=== PATIENT | female | born 1945 | race Caucasian/White ===

== ENCOUNTER 2017-10-25 10:01 | Emergency (ER) | payer MEDICARE ==
[2017-10-25] MEDS ORDERED: PANTOPRAZOLE 40 MG/10 ML VIAL IVP STA (11:05)
[2017-10-25] MEDS ORDERED: SODIUM CHLORIDE 0.9% 1,000 ML IV STA ×2 (11:05)
[2017-10-25] MEDS ORDERED: ONDANSETRON 4 MG/2 ML VIAL IVP STA (11:05)
[2017-10-25 11:55] LABS: Basophils % (A) 0 %; Eosinophils % (A) 0 %; HCT 44.4 % (34.0-46.0); HGB 14.7 gm/dL (11.4-16.0); Lymphocytes # (A) 1.2 k/uL (1.0-4.8); Lymphocytes % (A) 26 %; MCH 29.3 pg (25.0-35.0); MCHC 33.1 g/dL (31.0-37.0); MCV 88.4 fL (80.0-100.0); Mean Platelet Volume 7.4; Monocytes # (A) 0.4 k/uL (0-1.0); Monocytes % (A) 10 %; Neutrophils # (A) 2.8 k/uL (1.3-7.7); Neutrophils % (A) 63 %; Platelet Count 253 k/uL (150-450); RBC 5.02 m/uL (3.80-5.40); RDW 13.6 % (11.5-15.5); WBC 4.4 k/uL (3.8-10.6)
[2017-10-25 12:08] LABS: ALT 25 U/L (9-52); AST 26 U/L (14-36); Alkaline Phosphatase 80 U/L (38-126); Anion Gap 11 mmol/L; Blood Urea Nitrogen 11 mg/dL (7-17); Calcium 9.5 mg/dL (8.4-10.2); Carbon Dioxide 29 mmol/L (22-30); Chloride 100 mmol/L (98-107); Glucose 110 mg/dL (74-99); INR 1.1 (<1.2); Partial Thromboplastin Time 22.2 sec (22.0-30.0); Phosphorus 3.3 mg/dL (2.5-4.5); Prothrombin Time 10.6 sec (9.0-12.0); Sodium 140 mmol/L (137-145); Total Bilirubin 0.5 mg/dL (0.2-1.3); Total Protein 7.3 g/dL (6.3-8.2)
--- NOTE | 2017-10-25 12:08 | ED ---
General Adult HPI - General Chief complaint: Nausea/Vomiting/Diarrhea Stated complaint: Flu Time Seen by Provider: 10/25/17 10:36 Source: patient, RN notes reviewed, old records reviewed Mode of arrival: ambulatory Limitations: no limitations - History of Present Illness Initial comments: This is a 71-year-old female to the ER for evaluation of persistent nausea vomiting, not feeling well. No specific pain. Symptoms worse after eating. Patient has been on multiple different antibiotics recently for upper respiratory infection, bronchitis. Patient has had occasional on and off diarrhea. No fevers no travel history no sick contacts no family member with similar significant symptoms. Patient has seen both her family doctor and manufacturing intern in the last 2 weeks for evaluation, has completed all outpatient treatment, main complaint is side effects related to treatment course. - Related Data Home Medications Medication Instructions Recorded Confirmed Azithromycin [Zithromax Z-pack] See Taper PO DAILY 10/25/17 10/25/17 Fluticasone Propionate [Flovent 2 puff INHALATION RT-DAILY 10/25/17 10/25/17 Hfa 110mcg] Ranitidine HCl 150 mg PO DAILY PRN 10/25/17 10/25/17 Theophylline Anhydrous [Uniphyl ER] 600 mg PO HS 10/25/17 10/25/17 methylPREDNISolone [Medrol Dose See Taper PO DIRECTED 10/25/17 10/25/17 Pack] Previous Rx's Medication Instructions Recorded Ondansetron Odt [Zofran ODT] 4 mg PO Q8HR PRN #30 tab 10/25/17 Allergies Allergy/AdvReac Type Severity Reaction Status Date / Time No Known Allergies Allergy Verified 10/25/17 10:46 Review of Systems ROS Statement: Those systems with pertinent positive or pertinent negative responses have been documented in the HPI. ROS Other: All systems not noted in ROS Statement are negative. Past Medical History Past Medical History: No Reported History History of Any Multi-Drug Resistant Organisms: None Reported Past Surgical History: No Surgical Hx Reported Past Psychological History: No Psychological Hx Reported Smoking Status: Former smoker Past Alcohol Use History: None Reported General Exam Limitations: no limitations General appearance: alert, in no apparent distress Head exam: Present: atraumatic, normocephalic, normal inspection Eye exam: Present: normal appearance, PERRL, EOMI. Absent: scleral icterus, conjunctival injection, periorbital swelling ENT exam: Present: normal exam, mucous membranes dry Neck exam: Present: normal inspection. Absent: tenderness, meningismus, lymphadenopathy Respiratory exam: Present: normal lung sounds bilaterally. Absent: respiratory distress, wheezes, rales, rhonchi, stridor Cardiovascular Exam: Present: regular rate, normal rhythm, normal heart sounds. Absent: systolic murmur, diastolic murmur, rubs, gallop, clicks GI/Abdominal exam: Present: soft, normal bowel sounds. Absent: distended, tenderness, guarding, rebound, rigid Extremities exam: Present: normal inspection, full ROM, normal capillary refill. Absent: tenderness, pedal edema, joint swelling, calf tenderness Back exam: Present: normal inspection Neurological exam: Present: alert, oriented X3, CN II-XII intact Psychiatric exam: Present: normal affect, normal mood Skin exam: Present: warm, dry, intact, normal color. Absent: rash Course Vital Signs 10/25/17 10:18 Temperature 96.7 F L Pulse Rate 105 H Respiratory 18 Rate Blood Pressure 117/72 O2 Sat by Pulse 97 Oximetry - Reevaluation(s) Reevaluation #1: 10/25/17 12:16 Patient given IV hydration here in the ER, feeling better, potassium is replaced Reevaluation #2: 10/25/17 12:16 Patient remains improved after breathing treatment EKG Findings - EKG Comments: EKG Findings:: EKG shows sinus rhythm rate of 95, WV 128, QRS 64, QTC 424 Medical Decision Making - Medical Decision Making 71 female the ER with nausea vomiting, visual diarrhea likely related to medication side effects. Patient will be given Zofran, patient is positive for informs a, outside of treatment window for Tamiflu, no fever encouraged increased fluid intake and discharged home - Lab Data Result diagrams: 10/25/17 11:40 10/25/17 11:40 Lab Results 10/25/17 10/25/17 10/25/17 Range/Units 11:40 11:40 11:40 WBC 4.4 (3.8-10.6) k/uL RBC 5.02 (3.80-5.40) m/uL Hgb 14.7 (11.4-16.0) gm/dL Hct 44.4 (34.0-46.0) % MCV 88.4 (80.0-100.0) fL MCH 29.3 (25.0-35.0) pg MCHC 33.1 (31.0-37.0) g/dL RDW 13.6 (11.5-15.5) % Plt Count 253 (150-450) k/uL Neutrophils % 63 % Lymphocytes % 26 % Monocytes % 10 % Eosinophils % 0 % Basophils % 0 % Neutrophils # 2.8 (1.3-7.7) k/uL Lymphocytes # 1.2 (1.0-4.8) k/uL Monocytes # 0.4 (0-1.0) k/uL Eosinophils # 0.0 (0-0.7) k/uL Basophils # 0.0 (0-0.2) k/uL PT (9.0-12.0) sec INR (<1.2) APTT (22.0-30.0) sec Sodium 140 (137-145) mmol/L Potassium 3.0 L* (3.5-5.1) mmol/L Chloride 100 (98-107) mmol/L Carbon Dioxide 29 (22-30) mmol/L Anion Gap 11 mmol/L BUN 11 (7-17) mg/dL Creatinine 0.80 (0.52-1.04) mg/dL Est GFR (MDRD) Af Amer >60 (>60 ml/min/1.73 sqM) Est GFR (MDRD) Non-Af >60 (>60 ml/min/1.73 sqM) Glucose 110 H (74-99) mg/dL Plasma Lactic Acid Reinaldo 1.1 (0.7-2.0) mmol/L Calcium 9.5 (8.4-10.2) mg/dL Phosphorus 3.3 (2.5-4.5) mg/dL Magnesium 1.9 (1.6-2.3) mg/dL Total Bilirubin 0.5 (0.2-1.3) mg/dL AST 26 (14-36) U/L ALT 25 (9-52) U/L Alkaline Phosphatase 80 (38-126) U/L Total Protein 7.3 (6.3-8.2) g/dL Albumin 4.0 (3.5-5.0) g/dL Influenza Type A RNA (Not Detectd) Influenza Type B (PCR) (Not Detectd) Group A Strep Rapid (Negative) 10/25/17 10/25/17 10/25/17 Range/Units 11:40 11:40 11:40 WBC (3.8-10.6) k/uL RBC (3.80-5.40) m/uL Hgb (11.4-16.0) gm/dL Hct (34.0-46.0) % MCV (80.0-100.0) fL MCH (25.0-35.0) pg MCHC (31.0-37.0) g/dL RDW (11.5-15.5) % Plt Count (150-450) k/uL Neutrophils % % Lymphocytes % % Monocytes % % Eosinophils % % Basophils % % Neutrophils # (1.3-7.7) k/uL Lymphocytes # (1.0-4.8) k/uL Monocytes # (0-1.0) k/uL Eosinophils # (0-0.7) k/uL Basophils # (0-0.2) k/uL PT 10.6 (9.0-12.0) sec INR 1.1 (<1.2) APTT 22.2 (22.0-30.0) sec Sodium (137-145) mmol/L Potassium (3.5-5.1) mmol/L Chloride (98-107) mmol/L Carbon Dioxide (22-30) mmol/L Anion Gap mmol/L BUN (7-17) mg/dL Creatinine (0.52-1.04) mg/dL Est GFR (MDRD) Af Amer (>60 ml/min/1.73 sqM) Est GFR (MDRD) Non-Af (>60 ml/min/1.73 sqM) Glucose (74-99) mg/dL Plasma Lactic Acid Reinaldo (0.7-2.0) mmol/L Calcium (8.4-10.2) mg/dL Phosphorus (2.5-4.5) mg/dL Magnesium (1.6-2.3) mg/dL Total Bilirubin (0.2-1.3) mg/dL AST (14-36) U/L ALT (9-52) U/L Alkaline Phosphatase (38-126) U/L Total Protein (6.3-8.2) g/dL Albumin (3.5-5.0) g/dL Influenza Type A RNA Not Detected (Not Detectd) Influenza Type B (PCR) Detected H (Not Detectd) Group A Strep Rapid Negative (Negative) - Radiology Data Radiology results: report reviewed (X-ray abdominal series and chest is negative for acute disease), image reviewed Disposition Clinical Impression: Dehydration, Drug-induced nausea and vomiting, Gastroenteritis, Bronchitis, Influenza Disposition: HOME SELF-CARE Condition: Good Instructions: Acute Nausea and Vomiting (ED), Influenza (ED) Prescriptions: Ondansetron Odt [Zofran ODT] 4 mg PO Q8HR PRN #30 tab PRN Reason: nausea/vomiting Referrals: Rafy Kim MD [Primary Care Provider] - 1-2 days
[2017-10-25] MEDS ORDERED: POTASSIUM CHLORIDE ER 20 MEQ TAB.ER PO STA (12:11)
[2017-10-25] MEDS ORDERED: DEXAMETHASONE SOD PHOSPHATE 10 MG/ML 1 ML VIAL IV STA (12:17)
[2017-10-25] MEDS ORDERED: IPRATROPIUM-ALBUTEROL 3 ML NEB INHALATION STA (12:17)
--- NOTE | 2017-10-25 12:21 | XR ---
EXAMINATION TYPE: XR abdomen acute w cxr DATE OF EXAM: 10/25/2017 CLINICAL HISTORY: Cough and congestion with nausea and vomiting. TECHNIQUE: Single frontal view of chest is obtained. Supine and upright views of the abdomen are acq uired. COMPARISON: Chest x-ray from 3 days ago. FINDINGS: There is chronic emphysematous change without suspicious new focal airspace opacity, pleura l effusion, or pneumothorax seen bilaterally. Cardiac silhouette size appears within normal limits w ith atherosclerotic change in aortic knob. Stable right upper lobe 8mm nodule noted. Osseous structur es are intact. Gas is noted in nondistended stomach and small bowel loops. Gas and fecal material is seen in nondis tended colon. Serpiginous densities in the pelvis likely reflects product of surgery or prolapse. Cor relate clinically. Some pelvic phleboliths are seen. No pneumoperitoneum is identified. IMPRESSION: 1. Chronic emphysematous change without acute pulmonary process. Redemonstration of 8 mm right upper lobe nodule. Advise nonemergent CT follow-up. 2. Overall nonspecific but likely nonobstructive bowel gas pattern.
[2017-10-25 12:27] LABS: Creatine Kinase 43 U/L (30-135)
[2017-10-25 12:40] LABS: Creatine Kinase MB 1.1 ng/mL (0.0-2.4); Troponin I <0.012 ng/mL (0.000-0.034)
[2017-10-25 13:15] VITALS: BP 145/76; PULSE 109; RESP 20; TEMP 99
== END 2017-10-25 13:34 | disposition home or self-care (01) ==
LOC: EC 10:01
DX: K52.9 Noninfective gastroenteritis and colitis, unspecified (principal); J11.1 Influenza due to unidentified influenza virus with other respiratory manifestations; J40 Bronchitis, not specified as acute or chronic; E86.0 Dehydration; Z87.891 Personal history of nicotine dependence; Z79.899 Other long term (current) drug therapy; Z79.52 Long term (current) use of systemic steroids
CPT/HCPCS: 36415; 94640; 93005; 80053; 82550; 82553; 83605; 83735; 84100; 84484; 85025; 85610; 85730; 87081; 87430; 87502; 74022; 99284; 96374; 96375 ×2; 96361; J1100; J2405; C9113

== ENCOUNTER → 2020-01-30 | Outpatient (CLI) | payer MEDICARE ==
[2020-01-30 12:07] LABS: Basophils % (A) 1 %; Eosinophils # (A) 0.2 k/uL (0-0.7); Eosinophils % (A) 4 %; HCT 45.5 % (34.0-46.0); HGB 14.8 gm/dL (11.4-16.0); Lymphocytes # (A) 1.4 k/uL (1.0-4.8); Lymphocytes % (A) 26 %; MCHC 32.5 g/dL (31.0-37.0); MCV 95.4 fL (80.0-100.0); Mean Platelet Volume 7.1; Monocytes # (A) 0.4 k/uL (0-1.0); Monocytes % (A) 7 %; Neutrophils # (A) 3.2 k/uL (1.3-7.7); Neutrophils % (A) 59 %; Platelet Count 273 k/uL (150-450); RBC 4.77 m/uL (3.80-5.40); WBC 5.3 k/uL (3.8-10.6)
[2020-01-30 19:53] LABS: African American GFR (CKD) 63.4 (60.0-200.0); Albumin 4.4 g/dL (3.80-4.90); Anion Gap 9.6 mmol/L (4.00-12.00); Calcium 9.4 mg/dL (8.7-10.3); Carbon Dioxide 25.4 mmol/L (21.6-31.8); Globulin 2.2 g/dL (1.6-3.3); Non-African American GFR(CKD) 54.7 (60.0-200.0); Potassium 4.3 mmol/L (3.5-5.5); Total Bilirubin 0.5 mg/dL (0.3-1.2); Total Protein 6.6 g/dL (6.2-8.2)
== END | disposition home or self-care (01) ==
LOC: LABWHC1 11:16
PROVIDERS: ATTEND Internal Medicine Sleep Medicine
DX: I10 Essential (primary) hypertension (principal)
CPT/HCPCS: 36415; 80053; 85025

== ENCOUNTER → 2021-10-16 | Outpatient (CLI) | payer MEDICARE ==
--- NOTE | 2021-10-16 16:28 | XR ---
EXAMINATION TYPE: XR chest 2V DATE OF EXAM: 10/16/2021 COMPARISON: 10/22/2017 HISTORY: 75-year-old female U09.9, postcholecystectomy condition. TECHNIQUE: Frontal and lateral views FINDINGS: Heart normal size. Atherosclerotic arch calcifications. Hyperinflation. Patchy interstitial changes i n the upper lungs and also at the lower lungs. Diffuse interstitial prominence and peribronchial cuff ing is noted. Possible nodular density left midlung. No pleural effusion. Accentuated mid thoracic ky phosis. IMPRESSION: 1. COPD. Extensive chronic appearing interstitial changes. Consider further detailed parenchymal asse ssment with CT of the chest. 2. The CT can also exclude a pulmonary nodule at the left midlung.
== END | disposition home or self-care (01) ==
LOC: RADXRMAIN 15:01
PROVIDERS: ATTEND Internal Medicine Sleep Medicine
DX: J44.9 Chronic obstructive pulmonary disease, unspecified (principal)
CPT/HCPCS: 71046

== ENCOUNTER → 2022-01-15 | Outpatient (CLI) | payer MEDICARE ==
--- NOTE | 2022-01-15 17:16 | US ---
EXAMINATION TYPE: US venous doppler duplex LE DATE OF EXAM: 01/15/2022 4:45 PM COMPARISON: NONE CLINICAL HISTORY: I80.9 PHLEBITIS AND THROMBOPHLEBITIS. Pain in the legs. No hx of DVT. Patient is on eliquis. Hx hip surgery 12/12/21. SIDE PERFORMED: Bilateral TECHNIQUE: The lower extremity deep venous system is examined utilizing real time linear array sonog hillary with graded compression, doppler sonography and color-flow sonography. VESSELS IMAGED: Common Femoral Vein Deep Femoral Vein Greater Saphenous Vein * Femoral Vein Popliteal Vein Small Saphenous Vein * Proximal Calf Veins (* superficial vessels) Right Leg: Color defect/lack of color flow seen in femoral vein and popliteal vein. CFV, femoral ve in, and popliteal vein appear to compress incompletely. Echoes seen within femoral vein and popliteal vein. Color flow seen in CFV. Left Leg: CFV appears to compress incompletely. Color flow seen. Color defect seen in mid and distal femoral vein. Femoral vein mid and distal appear to compress incompletely. Exam is limited due to patient positioning. IMPRESSION: Limited exam with incomplete compressibility of the right common femoral vein extending to the poplit eal vein and left mid and distal femoral vein suggesting nonocclusive deep vein thrombosis.
== END | disposition home or self-care (01) ==
LOC: RADUSWWP 16:38
PROVIDERS: ATTEND Orthopaedic Surgery
DX: Z48.89 Encounter for other specified surgical aftercare (principal); S42.201D Unspecified fracture of upper end of right humerus, subsequent encounter for fracture with routine healing; I80.9 Phlebitis and thrombophlebitis of unspecified site; M79.621 Pain in right upper arm; M16.11 Unilateral primary osteoarthritis, right hip; M79.661 Pain in right lower leg; X58.XXXD Exposure to other specified factors, subsequent encounter
CPT/HCPCS: 93970